=== PATIENT | female | born 1950 | race Caucasian/White ===

== ENCOUNTER 2021-01-21 09:45 | Emergency (ER) | payer MEDICARE, OTHER, SELFPAY ==
[2021-01-21 09:45] VITALS: BP 128/76; PULSE 65; RESP 18; TEMP 36.7; O2SAT 97; BMI 23.8
--- NOTE | 2021-01-21 10:03 | HMH.EDUTC ---
[facility] Disposition Clinical Impression: Poison [place] dermatitis Disposition: Home, Self-Care Condition on Discharge: Good Instructions: Poisonous Plants: [place], [place], and [place]: Beware the Oils, Poison [place], Poison [place], Poison [place], DI for Poison [place] Allergy, Prednisone Additional Instructions: Cool compresses may help with itching and irritation Over the counter Calamine lotion, oatmeal bathes, and Benadryl may help to dry up the rash and help with itching Start Oral steriods tomorrow 01/22/21 Return if needed Make sure when you come in from being in the weeds to take a cool shower and be careful touching clothing that you was wearing, the oil from the poison [place] plant may remain on clothing or pets for weeks Follow up with your Family Doctor if needed Straight to ER if any life threatening symptoms Prescriptions: predniSONE [Prednisone 5mg Tab Dose-Pack] 5 mg PO UD DOSE PK 6 Days #21 pack Transmission Status: Received by [id number] Referrals: Jeimy Taylor [Primary Care Provider] - As needed Time of Disposition: 10:12 Medical Decision Making - Ryley Inquiry Pt receiving controlled substance: No Ryley was queried for this patient: No Vital Signs: 01/21/21 09:45 01/21/21 10:10 Temperature 98.0 F 98.0 F Temperature Source Oral Pulse Rate 65 Pulse Rate [Left Brachial] 65 Respiratory Rate 18 18 Blood Pressure 128/76 Blood Pressure [Left Arm] 128/76 Blood Pressure Mean [Left Arm] 93 Blood Pressure Source [Left Arm] Automatic Cuff Blood Pressure Position [Left Arm] Sitting 02 Sat by Pulse Oximetry 97 Oxygen Delivery Method Room Air Orders (Tests/Meds): ED MEDICATIONS Discontinued Medications Generic Name Dose Route Start Last Admin Trade Name Kirk PRN Reason Stop Dose Admin Methylprednisolone Sodium Succinate 125 mg 01/21/21 10:03 01/21/21 10:09 Methylprednisolone Sod Succ 125mg Vial IM 01/21/21 10:04 125 mg ONCE ONE Administration Medical Decision Narrative: Patient reports that she has take Steriod injections and Prednisone in the past without complications or reactions [facility] HPI - General Stated complaint: poison [place] Time Seen by Provider: 01/21/21 10:03 Mode of Arrival: Ambulatory Source of Information: Patient Limitations: No Limitations Description of Symptoms (Recalled from Triage Doc. by RN): PATIENT C/O POISON [place] THAT STARTED A WEEK AGO AND HAS SPREAD TO ARMS, LEGS, NECK AND TORSO HEENT Symptoms (Recalled from RN notes): No Resp Symptoms (Recalled from RN notes): No Skin Symptoms (Recalled from RN notes): Yes MS Symptoms (Recalled from RN notes): No Functional Status (Recalled from RN notes): WNL - History of Present Illness Provider Complaint: Patient state that she started about a week ago with poison [place] that has continued to spread State that it is on both legs, both arms, torso, neck and starting on face State that she has been using calamine lotion and benadryl but it is still spreading State that a few years ago it got really bad like this and she had to get steriod shot - Related Data Home Medications Medication Instructions Recorded Confirmed Apixaban [Eliquis] 5 mg PO DAILY 01/21/21 01/21/21 Escitalopram Oxalate [Lexapro] 20 mg PO DAILY 01/21/21 01/21/21 Metoprolol Tartrate [Lopressor 1.5 tab PO BID 01/21/21 01/21/21 25mg tablet] Previous Rx's Medication Instructions Recorded predniSONE [Prednisone 5mg Tab 5 mg PO UD DOSE PK 6 Days #21 pack 01/21/21 Dose-Pack] Allergies Allergy/AdvReac Type Severity Reaction Status Date / Time Sulfa (Sulfonamide Allergy Verified 01/21/21 10:01 Antibiotics) - Worker's Comp Is this a Worker's Comp case?: No [facility] History - Hepatitis A Screen Drug use history?: No High risk sexual behaviors?: No History of sexually transmitted infection?: No Currently employed?: No Childcare worker?: No Do you have indoor plumbing?: Yes Do you have electricity?: Yes Attestation stat
[2021-01-21 10:10] VITALS: BP 128/76; PULSE 65; RESP 18; TEMP 36.7; O2SAT 97
== END 2021-01-21 10:32 | disposition home or self-care (01) ==
PROVIDERS: Emergency Provider Nurse Practitioner; PCP Family Medicine
DX: L23.7 Allergic contact dermatitis due to plants, except food (principal); Z88.2 Allergy status to sulfonamides
CPT/HCPCS: G0463; 96372; 99202